=== PATIENT | female | born 2005 | race Caucasian/White ===

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

== ENCOUNTER → 2023-11-07 | Outpatient (REF) | payer BC, OTHER | LOC: M LAB REF 18:39 | PROVIDERS: ATTEND Registered Nurse | DX: J02.9 Acute pharyngitis, unspecified (principal) ==